=== PATIENT | female | born 1950 | race Caucasian/White ===

== ENCOUNTER 2022-05-11 13:23 | Emergency (ER) | payer MEDICARE ==
[2022-05-11 15:58] VITALS: BP 92/55; PULSE 65
[2022-05-11] MEDS ORDERED: HYDROmorphone 1 MG/ML Syringe IM ONE (16:16)
== END 2022-05-11 17:48 | disposition home or self-care (01) ==
LOC: JP.ED 13:23
DX: G89.29 Other chronic pain (principal); M54.50 Low back pain, unspecified; N18.30 Chronic kidney disease, stage 3 unspecified; Z88.8 Allergy status to other drugs, medicaments and biological substances; Z91.018 Allergy to other foods; Z79.82 Long term (current) use of aspirin
CPT/HCPCS: 96372; 99283; J1170

== ENCOUNTER 2022-05-12 13:53 | Emergency (ER) | payer MEDICARE ==
[2022-05-12] MEDS ORDERED: Ondansetron 4 MG Tab.DIS PO ONE (15:05)
[2022-05-12] MEDS ORDERED: HYDROmorphone 1 MG/ML Syringe IM ONE (15:06)
[2022-05-12] MEDS ORDERED: Sodium Chloride 0.9% 1,000 ML IV SCH (15:30)
[2022-05-12] MEDS ORDERED: Sodium Chloride 0.9% 10 ML Syringe FLUSH PRN ×2 (15:35→18:06)
[2022-05-12] MEDS ORDERED: Sodium Chloride 0.9% 1,000 ML IV ONE (15:36)
[2022-05-12] MEDS ORDERED: Ondansetron 4 MG/2 ML SDV IVPUSH ONE (15:40)
[2022-05-12 15:54] VITALS: BP 90/46; PULSE 53
[2022-05-12] MEDS ORDERED: Metoclopramide 10 MG/2 ML SDV IVPUSH ONE (16:45)
[2022-05-12] MEDS ORDERED: traMADol 50 MG Tab PO ONE (16:46)
[2022-05-12 18:04] LABS: ESTIMATED GFR 68 mL/min (>60)
[2022-05-12] MEDS ORDERED: Iopamidol 612 MG/ML 100 ML Bottle IV PRN (18:06)
[2022-05-12] MEDS ORDERED: Sodium Chloride 0.9% 50 ML IV ONE (18:06)
== END 2022-05-12 20:31 | disposition home or self-care (01) ==
LOC: JP.ED 13:53
DX: M47.816 Spondylosis without myelopathy or radiculopathy, lumbar region (principal); Z88.8 Allergy status to other drugs, medicaments and biological substances; Z91.018 Allergy to other foods; Z79.899 Other long term (current) drug therapy; Z79.82 Long term (current) use of aspirin; Z90.49 Acquired absence of other specified parts of digestive tract
CPT/HCPCS: 36415; 74177; 80053; 81001; 85025; 96361; 96372; 96374; 96375; 99284; J1170; J2405; J2765; J3490; J7030; Q9967

== ENCOUNTER 2023-02-12 07:22 | Day surgery (SDC) | payer MEDICARE ==
[2023-02-12] MEDS ORDERED: Sodium Chloride 0.9% 10 ML Syringe FLUSH PRN (08:00)
[2023-02-12 08:40] VITALS: BP 93/51; PULSE 63
== END 2023-02-12 08:48 | disposition home or self-care (01) ==
LOC: JP.SDS 07:22
PROVIDERS: ATTEND Ophthalmology
DX: H26.9 Unspecified cataract (principal); N18.30 Chronic kidney disease, stage 3 unspecified; Z88.8 Allergy status to other drugs, medicaments and biological substances; Z91.048 Other nonmedicinal substance allergy status
CPT/HCPCS: V2632

== ENCOUNTER 2023-02-26 08:57 | Day surgery (SDC) | payer MEDICARE ==
[2023-02-26 09:58] VITALS: BP 93/56; PULSE 59
[2023-02-26] MEDS ORDERED: Sodium Chloride 0.9% 10 ML Syringe FLUSH ONE (10:00)
== END 2023-02-26 10:14 | disposition home or self-care (01) ==
LOC: JP.SDS 08:57
PROVIDERS: ATTEND Ophthalmology
DX: H25.012 Cortical age-related cataract, left eye (principal)

== ENCOUNTER 2025-01-18 07:20 | Day surgery (SDC) | payer MEDICARE ==
[2025-01-18] MEDS ORDERED: fentaNYL 100 MCG/2 ML SDV ONE (07:28)
[2025-01-18] MEDS ORDERED: Propofol 200 MG/20 ML SDV ONE (07:29)
[2025-01-18] MEDS: Lactated Ringers 1,000 ML IV SCH (07:49)
[2025-01-18 10:40] VITALS: PULSE 56
[2025-01-18 10:46] VITALS: BP 115/61
== END 2025-01-18 11:03 | disposition home or self-care (01) ==
LOC: JP.SDS 07:20
PROVIDERS: ATTEND Surgery
DX: R19.7 Diarrhea, unspecified (principal); K57.30 Diverticulosis of large intestine without perforation or abscess without bleeding; J45.909 Unspecified asthma, uncomplicated; N18.30 Chronic kidney disease, stage 3 unspecified; Z88.5 Allergy status to narcotic agent
CPT/HCPCS: 00811; 45380; 88305; J2704; J3010; J7120